=== PATIENT | male | born 1970 | race Caucasian/White ===

== ENCOUNTER 2019-07-21 06:33 | Outpatient (CLI) | payer BC ==
[2019-07-21 17:00] LABS: #Basophils 0.1 thou/uL (0.0-0.2); #Eosinphils 0.1 thou/uL (0.0-0.7); #Lymphocytes 3.5 thou/uL (1.20-3.40); #Monocytes 1.2 thou/uL (0.11-0.59); #Neutrophils 7.5 thou/uL (1.40-6.50); %Basophils 0.4 % (0.0-1.0); %Eosinophils 1.2 % (0.0-10.0); %Lymphocytes 28.2 % (21.0-51.0); %Monocytes 9.9 % (0.0-10.0); %Neutrophils 60.3 % (42.0-75.0); Hemoglobin 16.3 g/dL (14.0-18.0); Mean Corpuscular HGB CONC 34.2 g/dL (32.0-36.0); Mean Corpuscular Hemoglobin 31.1 pg (27.0-31.0); Mean Corpuscular Volume 91.2 fL (78.0-98.0); Platelet Count 318 thou/uL (130-400); Red Blood Cell (RBC) Count 5.22 mill/uL (4.70-6.10); White Blood Cell (WBC) Count 12.4 thou/uL (4.8-10.8)
[2019-07-21 17:19] LABS: Anion Gap 14 mmol/L (10-20); BUN (Urea Nitrogen) 10 mg/dL (8.9-20.6); Calc. Creatinine Clearance 0 mL/min (70-130); Calcium 9.7 mg/dL (7.8-10.44); Carbon Dioxide 27 mmol/L (22-29); Chloride 102 mmol/L (98-107); Estimated GFR-MDRD 70; Glucose 79 mg/dL (70-105); Potassium 4.1 mmol/L (3.5-5.1); Sodium 139 mmol/L (136-145)
--- NOTE | 2019-07-23 18:49 | EKG ---
Test Reason : Blood Pressure : / mmHG Vent. Rate : 080 BPM Atrial Rate : 080 BPM P-R Int : 154 ms QRS Dur : 094 ms QT Int : 394 ms P-R-T Axes : 059 071 045 degrees QTc Int : 454 ms Normal sinus rhythm Normal ECG No previous ECGs available Confirmed by DR. Edmund BELLAMY ([id number]) on 07/23/2019 6:49:11 PM Referred By: IERO Confirmed By:DR. Edmund BELLAMY
== END 2019-07-21 06:34 | disposition home or self-care (01) ==
LOC: LABBT 06:33
PROVIDERS: ATTEND Orthopaedic Surgery
DX: Z01.818 Encounter for other preprocedural examination (principal); S43.402A Unspecified sprain of left shoulder joint, initial encounter
CPT/HCPCS: 80048; 85025; 93005; 93010

== ENCOUNTER 2019-07-23 07:10 | Day surgery (SDC) | payer BC ==
[2019-07-21 16:24] VITALS: BMI 35.5
[2019-07-23] MEDS ORDERED: Promethazine HCl 25 MG/ML VIAL IM PRN (09:06)
[2019-07-23] MEDS ORDERED: Ondansetron PF 4 MG/2 ML Vial IVP PRN (09:06)
[2019-07-23] MEDS ORDERED: HYDROcodone/Acetaminophen 5/325 mg Tablet PO PRN ×2 (09:06)
[2019-07-23] MEDS ORDERED: traMADol HCl 50 MG TAB PO PRN ×2 (09:06)
[2019-07-23] MEDS ORDERED: Ropivacaine 0.2% 550 ML 550 ML NERVE BLCK SCH (09:06)
[2019-07-23] MEDS ORDERED: Zolpidem Tartrate 5 MG TAB PO PRN (09:06)
[2019-07-23] MEDS ORDERED: Bupivacaine HCl 0.5%/Epinephrine 1:200,000/PF 30 ml Vial ONE (09:20)
[2019-07-23] MEDS ORDERED: Ropivacaine 0.5% HCl/PF (150 MG/30 ML VIAL) ONE (09:50)
[2019-07-23] MEDS ORDERED: Lidocaine 1% PF 5 ML VIAL ONE (09:50)
[2019-07-23] MEDS ORDERED: Rocuronium Bromide 10 MG/ML (10ML VIAL) ONE (09:50)
[2019-07-23] MEDS ORDERED: Ropivacaine 0.2% HCl/PF (40 MG/20 ML VIAL) ONE (09:50)
[2019-07-23] MEDS ORDERED: PROPOFOL 200 MG/20 ML VIAL ONE (09:50)
[2019-07-23] MEDS ORDERED: Glycopyrrolate 0.2 MG/ML 5 ML SYRINGE ONE (09:50)
[2019-07-23] MEDS ORDERED: Ondansetron PF 4 MG/2 ML Vial ONE (11:24)
[2019-07-23] MEDS ORDERED: Ketorolac Tromethamine 30 MG/ML VIAL IVP SCH (12:00)
--- NOTE | 2019-07-24 14:31 | OP ---
DATE OF PROCEDURE: 07/23/2019 PREOPERATIVE DIAGNOSIS: Left shoulder pain secondary to biceps tendon tear status post previous superior labrum anterior to posterior repair. POSTOPERATIVE DIAGNOSIS: Left shoulder pain secondary to biceps tendon tear status post previous superior labrum anterior to posterior repair. PROCEDURES PERFORMED: 1. Left shoulder arthroscopy with debridement and shaving. 2. Removal of foreign bodies, left shoulder. 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 ESTIMATED BLOOD LOSS: Minimal blood loss. ANESTHESIA: General anesthetic as well as a preoperative block. IMPLANTS: There were no implants. DISPOSITION: He went to recovery room in stable condition. INDICATIONS: A 48-year-old male who over a decade ago underwent a left-sided SLAP repair. Abdifatah has done well for years, but over the last couple of months, he was having severe pain in the left shoulder. At this time, he opted for surgery. DESCRIPTION OF PROCEDURE: After all appropriate consent forms were explained and signed, he was taken back to the operative room and at this time was given general anesthetic. Once the level of anesthesia was appropriate, he was rolled into the right lateral decubitus position. All bony prominences were well padded. An axillary roll was placed underneath the right axilla. Beanbag was inflated to hold in a position. The arm was then taken through full range of motion and suspended with 10 pounds in standard arthroscopic fashion. The shoulder and upper extremity were then prepped and draped in standard surgical fashion. Bony anatomical landmarks were drawn out and subacromial space was infiltrated with Marcaine with epinephrine. Posterior portal was established and the scope was placed into the shoulder joint. At this time, the articular surfaces of the glenoid and humeral head were evaluated and the glenoid was found to be normal. The humeral head had some slipping anteriorly, where a large chunk of biceps and labrum had been rubbing. It took the time to sort out what was going on here, but it appeared that the biceps insertion on the labrum ruptured off the superior labrum and this whole likely scarred anteriorly to the underlying cuff. As we looked in the axillary pouch, a thread in the previous anchors was noted. This was removed with a grasper. The remaining posterior aspect of the joint was evaluated, the labrum was intact as well as the cartilage and prior superior labrum, showed significant and another 2 of the clips were removed from the previous other anchors. We then used a shaver in the surface to carefully coagulate and then debride and then separate the labrum and the biceps from the overlying cuff tissue and capsule. Biceps was from its labral insertion and the intra-articular portion of the acromion was debrided. It appeared he was scarred down enough that it did not retract. The subscapularis was found to be normal and the rotator cuff itself was found to be in excellent condition. Once we were satisfied with the appearance of the glenohumeral joint and there were no more foreign bodies floating around or any other tissues needed to be debrided, we repositioned the scope in the subacromial space. Lateral working portal was made. Bursa was removed off the underlying cuff and to make sure that there were no adhesions between the deltoid and the cuff itself. The cuff was intact. No bony decompression was performed. Scope was then removed. Shoulder was drained and portals were closed with simple nylon stitch. Bulky sterile dressing was applied. The patient was awakened, taken to recovery room in stable condition. All counts were correct at the end of the case and he did receive preoperative IV antibiotics. Job ID: [id number] [facility]
== END 2019-07-23 13:30 | disposition home or self-care (01) ==
LOC: SDC 07:10
PROVIDERS: ATTEND Orthopaedic Surgery
PROC: 3E0T3BZ Introduction of Anesthetic Agent into Peripheral Nerves and Plexi, Percutaneous Approach (ICD-10-PCS; principal; 2019-07-23)
PROC: 0LS40ZZ Reposition Left Upper Arm Tendon, Open Approach (ICD-10-PCS; principal; 2019-07-23)
DX: S46.112A Strain of muscle, fascia and tendon of long head of biceps, left arm, initial encounter (principal); G89.18 Other acute postprocedural pain; Z79.899 Other long term (current) drug therapy; Z88.8 Allergy status to other drugs, medicaments and biological substances
CPT/HCPCS: A4306; J0670; J0690; J2001; J2405; J2704; J2795

== ENCOUNTER 2025-05-24 11:31 | Observation (INO) | payer BC ==
[2025-05-24 12:27] VITALS: BMI 36.9
[2025-05-24] MEDS ORDERED: Ondansetron PF 4 MG/2 ML Vial IVP PRN (12:36)
[2025-05-24] MEDS ORDERED: Acetaminophen 325 MG (10.15 ML) UDCUP PO PRN (14:45)
[2025-05-24] MEDS ORDERED: Pantoprazole 40 MG VIAL IVP SCH (16:15)
[2025-05-24] MEDS: Famotidine/PF 20 mg/2ml Vial SLOW IVP SCH (16:29)
[2025-05-25 06:12] LABS: #Basophils 0.08 10x3/uL (0.0-0.2); #Eosinophils 0.46 10x3/uL (0.0-0.7); #Monocytes 1.32 10x3/uL (0.11-0.59); #Neutrophils 7.35 10x3/uL (1.40-6.50); %Basophils 0.7 % (0.0-1.0); %Eosinophils 3.8 % (0.0-10.0); %Lymphocytes 24.5 % (21.0-51.0); %Monocytes 10.8 % (0.0-10.0); %Neutrophils 59.9 % (42.0-75.0); Hematocrit 41.0 % (42.0-52.0); Hemoglobin 13.9 g/dL (14.0-18.0); Mean Corpuscular Hemoglobin 30.2 pg (27.0-31.0); Mean Corpuscular Volume 88.9 fL (78.0-98.0); Platelet Count 240 10x3/uL (130-400); Red Blood Cell (RBC) Count 4.61 mill/uL (4.70-6.10); White Blood Cell (WBC) Count 12.25 10x3/uL (4.8-10.8)
[2025-05-25] MEDS: Pantoprazole 40 MG VIAL IVP SCH (08:59)
[2025-05-25] MEDS: Aspirin Chewable 81 MG TAB PO SCH (08:59)
[2025-05-25] MEDS: Lisinopril 20 MG TAB PO SCH (09:00)
[2025-05-25] MEDS ORDERED: Pantoprazole 40 MG VIAL IVP SCH (09:00)
[2025-05-25 17:26] VITALS: BP 100/67; TEMP 97.8
== END 2025-05-25 17:33 | disposition home or self-care (01) ==
LOC: T4-B 12:13 → INTOOBSV 12:13
PROVIDERS: ADMIT Family Medicine; ATTEND Family Medicine
DX: K56.609 Unspecified intestinal obstruction, unspecified as to partial versus complete obstruction (principal); D72.829 Elevated white blood cell count, unspecified; I10 Essential (primary) hypertension; E78.5 Hyperlipidemia, unspecified; K21.9 Gastro-esophageal reflux disease without esophagitis; F17.220 Nicotine dependence, chewing tobacco, uncomplicated; Z88.8 Allergy status to other drugs, medicaments and biological substances; Z79.899 Other long term (current) drug therapy
CPT/HCPCS: 36415; 74018; 85025; 96374; 96375; G0378; J2470; J7120